=== PATIENT | male | born 1970 | race Caucasian/White ===

== ENCOUNTER 2024-04-27 08:50 | Outpatient (CLI) | payer OTHER, SELFPAY | END 2024-04-27 08:51 | disposition home or self-care (01) | LOC: NFLDREF 05-05 23:24 | PROVIDERS: Visit Provider Family Medicine | DX: Z12.5 Encounter for screening for malignant neoplasm of prostate (principal); Z13.228 Encounter for screening for other metabolic disorders; Z13.220 Encounter for screening for lipoid disorders | CPT/HCPCS: 80053; 80061; G0103 ==

== ENCOUNTER 2024-05-20 10:33 | Outpatient (CLI) | payer OTHER, SELFPAY | END 2024-05-20 10:34 | disposition home or self-care (01) | LOC: US 10:36 | PROVIDERS: PCP Family Medicine; Visit Provider Family Medicine | DX: N43.3 Hydrocele, unspecified (principal) | CPT/HCPCS: 76870; 93976 ==

== ENCOUNTER 2024-05-27 14:42 | Outpatient (CLI) | payer OTHER, SELFPAY ==
--- NOTE | 2024-05-27 15:00 | CRLHL7_ITS ---
For Patients: As a result of the Century Cures Act, medical imaging exams and procedure reports are released immediately into your electronic medical record. You may view this report before your referring provider. If you have questions, please contact your health care provider. INDICATION: Evaluate for hernia. TECHNIQUE: CT images of the abdomen and pelvis without intravenous contrast. COMPARISON: None. FINDINGS: No concerning opacity is in the visualized lungs. No pleural effusion. Heart size is normal. The liver, gallbladder, and pancreas are unremarkable. Splenic granulomas. The adrenal glands are unremarkable. Small left parapelvic renal cysts. The stomach is mildly distended. No abnormally dilated loops of bowel. The appendix is unremarkable. No free fluid or free air. The abdominal aorta is normal in caliber. No pathologically enlarged lymph nodes. Urinary bladder is underdistended. Prostate gland is present. Large left inguinal hernia containing fat as well as a segment of the distal descending and proximal sigmoid colon measuring up to 14.7 cm in craniocaudal oblique dimension. No evidence for bowel obstruction or strangulation. Multilevel lumbar spondylosis. Chronic left L5 pars defect. No aggressive osseous lesions. IMPRESSION: 1. Large left inguinal hernia containing fat as well as a portion of the distal descending and proximal sigmoid colon. No evidence of bowel obstruction showing elevation. 2. No acute abnormality in the abdomen or pelvis. Please note that all CT scans at this facility use dose modulation, iterative reconstruction, and/or weight-based dosing when appropriate to reduce radiation dose to as low as reasonably achievable. Dictated by Puma George MD @ 05/28/2024 4:39:28 PM (Electronically Signed)
== END 2024-05-27 14:43 | disposition home or self-care (01) ==
LOC: CT 14:43
PROVIDERS: PCP Family Medicine; Visit Provider Family Medicine
DX: R19.09 Other intra-abdominal and pelvic swelling, mass and lump (principal); K40.90 Unilateral inguinal hernia, without obstruction or gangrene, not specified as recurrent
CPT/HCPCS: 74176

== ENCOUNTER 2024-07-21 07:38 | Day surgery (SDC) | payer OTHER, SELFPAY ==
[2024-07-21] VITALS (15 sets, daily range): BP systolic 122–141; BP diastolic 74–97; PULSE 52–75; RESP 14–17; TEMP 36.2–36.7; O2SAT 94–98; BMI 25.6
--- NOTE | 2024-07-21 08:27 | W.PM.H&PU ---
History & Physical Update History & Physical Update H&P Reviewed and patient assessed: No changes noted
[2024-07-21] MEDS: LACTATED RINGERS 1000 ML 1,000 ML 100 ML IV ×2 (08:40→10:52)
[2024-07-21] MEDS: SODIUM CHLORIDE 0.9 % (FLUSH) 10 ML SYRINGE IVF (08:40)
[2024-07-21] MEDS: CEFAZOLIN 1 GM inj IVP (09:12)
[2024-07-21] MEDS: BUPIVACAINE 0.25% 30 ML INJECTION (10:50)
--- NOTE | 2024-07-21 11:18 | P.GSOP_ITS ---
Operative Note Date of procedure: 07/21/24 Pre-op diagnosis: Left inguinal hernia Post-op diagnosis: Same Type of Procedure: Open left inguinal hernia repair with placement of mesh Indications: Patient presented to clinic with a symptomatic, large, incarcerated inguinal hernia. Please see consultation note for full discussion. Risks and benefits of operative intervention were discussed at length with the patient. Risks included but was not limited to: Bleeding, infection, risk of damage to surrounding structures, possible need for additional procedures and postoperative complications such as pneumonia, pulmonary emboli or DE. All questions and concerns were addressed with the patient agreeing to proceed. Procedure Description: After discussing the risks and benefits of the procedure, the patient signed informed consent.? The operative site was marked and the patient was brought to the operating room and placed on the operating table in supine position.? Care was taken to pad the patient's pressure points.?? The patient was then intubated by anesthesia.?? The operative site was then prepped and draped in the usual sterile fashion.? A time-out was then performed. Local anesthetic was injected into the skin and subcutaneous tissue overlying the inguinal canal. An oblique incision would was made over the external ring. Dissection was carried down into the subcutaneous tissue using cautery until the external oblique fascia was encountered. This was cleared off. The external ring was identified and after injection of more local anesthetic, the external oblique was incised using a knife. This was extended using the Metzenbaum scissors with care to dissect the underlying cord structures away before cutting. Evidence of a large hernia sac with incarcerated intra-abdominal contents. This was carefully dissected away from the cord structures and the intra-abdominal contents reduced. After reduction the cord was cleared from the inside of the inguinal canal and looped with a Mejia drain. A large indirect inguinal hernia was identified. The hernia sac was further dissected off of the cord structures down to the internal ring. Once free from surrounding tissue the sac was opened to ensure no intra-abdominal contents were present. The hernia sac was then ligated with 2 0 Vicryl and the proximal end reduced into the abdomen. The hernia sac was passed off for disposal. A piece of soft Bard polypropylene mesh was obtained and cut to size. This was secured to the pubic tubercle using 2-0 Prolene double-arm suture. The Prolene was run along the inguinal ligament laterally and medially along the transversalis fascia securing the tails behind the cord and recreating the internal ring. A few interrupted stitches of 2-0 Prolene were used to further secure the medial aspect of the mesh. The Wound was examined for hemostasis, which was excelle nt. The external oblique fascia was then reapproximated with absorbable suture. The wound was closed in layers including Tk's fascia and the dermis with 3-0 Vicryl. The skin was closed with a running subcuticular suture of 4-0 Monocryl. Sterile dressings were applied. Instrument sponge and needle counts were correct at the end of the case. The patient was woken and taken to the PACU in stable condition. Findings: Large left inguinal hernia, indirect Anesthesia: LOREE Surgeon: Paris Patterson MD Estimated blood loss (mL): 10 Condition: stable Disposition: PACU
--- NOTE | 2024-07-21 11:39 | P.ANES_ITS ---
Anesthesia Charges Start Date/Time Anesthesia Start Date: 07/21/24 Anesthesia Start Time: 09:02 Stop Date/Time Anesthesia Stop Date: 07/21/24 Anesthesia Stop Time: 11:20 Coding CPT Codes CPT Codes: ANESTH REPAIR OF HERNIA - 04479 ([id number]) QK - FINANCIAL SERVICES INTERN 2-4 CNCRNT ANES PROC, QX - LAMINATOR SVC W/ MD MED DIRECTION, P1 - NORMAL HEALTHY PATIENT
--- NOTE | 2024-07-21 11:39 | W.ANESCHARGE ---
Anesthesia Charges Start Date/Time Anesthesia Start Date: 07/21/24 Anesthesia Start Time: 09:02 Stop Date/Time Anesthesia Stop Date: 07/21/24 Anesthesia Stop Time: 11:20 Coding CPT Codes CPT Codes: ANESTH REPAIR OF HERNIA - [id number] ([id number]) QK - RETAIL FURNITURE SALES 2-4 CNCRNT ANES PROC, QX - SEMICONDUCTOR TESTING GROUP LEADER SVC W/ MD MED DIRECTION, P1 - NORMAL HEALTHY PATIENT
--- NOTE | 2024-07-21 11:52 | SUR.PHASEI ---
patient met discharge criteria per anesthesia
[2024-07-21] MEDS: HYDROCODONE-ACETAMIN 5-325 MG 1 TAB PO ×2 (12:09→13:22)
--- NOTE | 2024-07-21 12:10 | P.ANES_ITS ---
Anesthesia Charges Start Date/Time Anesthesia Start Date: 07/21/24 Anesthesia Start Time: 09:02 Stop Date/Time Anesthesia Stop Date: 07/21/24 Anesthesia Stop Time: 11:20 Coding CPT Codes CPT Codes: ANESTH REPAIR OF HERNIA - 89553 ([id number]) P1 - NORMAL HEALTHY PATIENT, QK - GRAY TENDER 2-4 CNCRNT ANES PROC, QX - AGRICULTURE MECHANIC SVSara W/ MED DIRECTION
--- NOTE | 2024-07-21 12:10 | W.ANESCHARGE ---
Anesthesia Charges Start Date/Time Anesthesia Start Date: 07/21/24 Anesthesia Start Time: 09:02 Stop Date/Time Anesthesia Stop Date: 07/21/24 Anesthesia Stop Time: 11:20 Coding CPT Codes CPT Codes: ANESTH REPAIR OF HERNIA - 57875 ([id number]) P1 - NORMAL HEALTHY PATIENT, QK - VENDING MACHINE REPAIRER 2-4 CNCRNT ANES PROC, QX - PUBLIC RELATIONS SVSara W/ MED DIRECTION
== END 2024-07-21 13:45 | disposition home or self-care (01) ==
PROVIDERS: PCP Family Medicine; Visit Provider Surgery
PROC: (CPT 49507; principal; 2024-07-21 09:15)
DX: K40.30 Unilateral inguinal hernia, with obstruction, without gangrene, not specified as recurrent (principal)
CPT/HCPCS: 49507; 00830; A9270; C1781; J0330; J0665; J0690; J1100; J1171; J1885; J2250; J2405; J2704; J2710; J3010; J3490; J7120

== ENCOUNTER 2025-01-20 14:42 | Outpatient (CLI) | payer BC, SELFPAY ==
--- NOTE | 2025-01-20 15:00 | CRLHL7_ITS ---
For Patients: As a result of the Century Cures Act, medical imaging exams and procedure reports are released immediately into your electronic medical record. You may view this report before your referring provider. If you have questions, please contact your health care provider. 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 Comparison: CT abdomen and pelvis 05/27/2024, CT cardiac study 05/13/2024 Findings: The visualized thyroid is within normal limits. Calcified right paratracheal and right hilar lymph nodes are present representing sequela of granulomatous disease. The adrenal glands are normal. Hyperdense food material is incidentally noted within the stomach. Small calcified splenic granulomas. Osseous structures are within normal limits. Calcified granuloma within the right lower lobe incidentally noted. No infiltrate or edema. No effusion or pneumothorax. No suspicious pulmonary nodule. Ascending aorta measures 4.2 cm Impression: Ascending aorta measures 4.2 cm. Sequela of prior granulomatous exposure. Please note that all CT scans at this facility use dose modulation, iterative reconstruction, and/or weight-based dosing when appropriate to reduce radiation dose to as low as reasonably achievable. Dictated by Tyrone Velásquez MD @ 01/23/2025 10:48:53 AM (Electronically Signed)
== END 2025-01-20 14:43 | disposition home or self-care (01) ==
LOC: CT 14:42
PROVIDERS: PCP Family Medicine; Visit Provider Family Medicine
DX: I71.21 Aneurysm of the ascending aorta, without rupture (principal)
CPT/HCPCS: 71250